=== PATIENT | male | born 1960 | race Caucasian/White ===

== ENCOUNTER 2024-01-30 14:55 | Outpatient (CLI) | payer MEDICAID, SELFPAY ==
[2024-01-30 17:51] LABS: Basophils % 0.8 % (0.1-2.0); Eosinophils # 0.1 K/mm3 (0.0-0.4); Eosinophils % 1.4 % (0.1-12.0); Hematocrit 45.5 % (42.0-52.0); Hemoglobin 15.9 g/dL (14.1-18.0); Lymphocytes # 1.7 K/mm3 (0.7-4.5); Lymphocytes % 31.9 % (10-50); Mean Corpuscular HGB Conc 34.9 g/dL (31.8-35.4); Mean Corpuscular Hemoglobin 33.9 pg (27.0-31.2); Mean Corpuscular Volume 97.1 fl (80-94); Mean Platelet Volume 7.5 fl (7.4-10.4); Monocytes # 0.5 K/mm3 (0.1-1.0); Monocytes % 8.9 % (1.7-9.3); Neutrophils # 3.1 K/mm3 (1.8-7.8); Neutrophils % 56.9 % (37.0-80.0); Platelet Count 221 K/mm3 (142-424); Red Blood Count 4.68 M/mm3 (4.60-6.20); Red Cell Distribution Width 12.5 % (11.5-17.5); White Blood Count 5.4 K/mm3 (4.8-10.8)
[2024-01-30 18:00] LABS: Albumin Level 4.6 g/dl (3.5-5.0); Chloride 105 mmol/L (98-107); Sodium 140 mmol/L (136-145)
[2024-01-30 18:01] LABS: Potassium 4.4 mmoL/L (3.5-5.1)
[2024-01-30 18:03] LABS: Alanine Aminotransferase 32 U/L (12-78); Albumin/Globulin Ratio 1.5 (1.1-1.8); Alkaline Phosphatase 61 U/L (38-126); Anion Gap 10.4 mEq/L (5-15); Aspartate Amino Transferase 39 U/L (17-59); Bilirubin,Direct 0.2 mg/dl (0.0-0.4); Bilirubin,Indirect 0.7 mg/dL (0.0-0.9); Bilirubin,Total 0.9 mg/dl (0.2-1.3); Bilirubin,Unconjugated 0.7 mg/dL (0.0-1.1); Blood Urea Nitrogen 15 mg/dl (9-20); Calcium 9.3 mg/dl (8.4-10.2); Carbon Dioxide 29 mmol/L (22.0-30.0); Cholesterol 185 mg/dl (140-200); Estimated Glomerular Filt Rate 114 ml/min (>60); GFR (African American) 138 ML/MIN (>60); Globulin 3.1 g/dL (1.3-3.2); Glucose 110 mg/dl (74-100); Iron 143 ug/dL (49-181); Total Protein,Serum 7.7 g/dl (6.3-8.2); Triglycerides 55 mg/dl (30-150); VLDL Cholesterol 11 mg/dL (0-40)
[2024-01-30 18:04] LABS: Chol/HDL Ratio 1.7 (1-3.5); HDL Cholesterol 109 mg/dl (40-60)
[2024-01-30 18:13] LABS: Total Iron Binding Capacity 386 ug/dL (261-462)
[2024-01-30 18:14] LABS: Direct LDL Cholesterol 52.49 mg/dL (100-129)
[2024-01-30 18:22] LABS: T4 (Thyroxine) 7.5 ug/dl (5.53-11.0)
[2024-01-30 18:34] LABS: Thyroid Stimulating Hormone 2.12 uIU/mL (0.465-4.68)
[2024-01-30 19:05] LABS: 25-OH Vitamin D, Total 56.7 ng/mL (30-100)
[2024-01-30 19:52] LABS: Vitamin B12 262 pg/mL (239-931)
[2024-01-30 19:53] LABS: Folate 9.62 ng/mL
== END 2024-01-30 23:59 | disposition home or self-care (01) ==
LOC: LAB.DROPOF 01-31 13:40
PROVIDERS: PCP Nurse Practitioner Family; Visit Provider Nurse Practitioner Family
DX: R41.0 Disorientation, unspecified (principal)
CPT/HCPCS: 80050; 80053; 80061; 80076; 82306; 82607; 82746; 83540; 83550; 84436; 84443; 85025; G0103